=== PATIENT | female | born 1985 | race Caucasian/White ===

== ENCOUNTER 2017-04-17 16:14 | Emergency (ER) | payer OTHER, MEDICAID ==
[~2017-04-17] VITALS: Ht 144.8 cm; Wt 68.0 kg
[~2017-04-17 16:14] MED LIST: ABIL10 PO; ALBUTEROL; CALC200T29 PO; FERR-63 PO; PREN-127 PO
[2017-04-17] MEDS ORDERED: ACETAMINOPHEN 325MG TABLET PO ONE (19:00)
[2017-04-17 19:04] VITALS: BP 105/69
== END 2017-04-17 19:09 | disposition home or self-care (01) ==
LOC: ER 17:28
DX: K08.89 Other specified disorders of teeth and supporting structures (principal); J45.909 Unspecified asthma, uncomplicated; Z91.040 Latex allergy status
CPT/HCPCS: 99283

== ENCOUNTER 2017-07-15 20:19 | Observation (INO) | payer OTHER, MEDICAID ==
[~2017-07-15] VITALS: Ht 144.8 cm; Wt 72.6 kg
[2017-07-15] MEDS ORDERED: FOLI-43 PO (23:51)
== END 2017-07-16 07:00 | disposition home or self-care (01) ==
LOC: L&D 20:19
PROVIDERS: ADMIT Obstetrics & Gynecology; ATTEND Obstetrics & Gynecology
DX: O62.9 Abnormality of forces of labor, unspecified (principal); Z3A.37 37 weeks gestation of pregnancy; Z79.899 Other long term (current) drug therapy
CPT/HCPCS: 82962; 99281; G0378

== ENCOUNTER 2017-07-22 20:41 | Observation (INO) | payer OTHER, MEDICAID ==
[~2017-07-22] VITALS: Ht 144.8 cm; Wt 68.9 kg
[~2017-07-22 20:41] MED LIST changes: +FOLI-43 PO
== END 2017-07-22 21:52 | disposition home or self-care (01) ==
LOC: L&D 20:41
PROVIDERS: ADMIT Specialist; ATTEND Specialist
DX: O62.9 Abnormality of forces of labor, unspecified (principal); Z3A.38 38 weeks gestation of pregnancy
CPT/HCPCS: 99281; G0378

== ENCOUNTER 2017-07-24 20:21 | Observation (INO) | payer OTHER ==
[~2017-07-24] VITALS: Ht 144.8 cm; Wt 68.0 kg
[~2017-07-24 20:21] MED LIST changes: -ABIL10 PO; -ALBUTEROL; -CALC200T29 PO; -FERR-63 PO; -FOLI-43 PO
[2017-07-24] MEDS ORDERED: FOLI-43 PO (22:29)
== END 2017-07-24 22:25 | disposition home or self-care (01) ==
LOC: L&D 20:21
PROVIDERS: ADMIT Obstetrics & Gynecology; ATTEND Obstetrics & Gynecology
DX: O42.92 Full-term premature rupture of membranes, unspecified as to length of time between rupture and onset of labor (principal); O62.9 Abnormality of forces of labor, unspecified; O24.410 Gestational diabetes mellitus in pregnancy, diet controlled; Z3A.38 38 weeks gestation of pregnancy
CPT/HCPCS: 82962; 99281; G0378

== ENCOUNTER 2017-07-29 00:02 | Emergency (ER) | payer OTHER ==
[~2017-07-29] VITALS: Ht 144.8 cm; Wt 74.0 kg
[~2017-07-29 00:02] MED LIST changes: +FOLI-43 PO
[2017-07-29 01:41] VITALS: BP 133/71
== END 2017-07-29 05:51 | disposition left against medical advice (07) ==
LOC: ER 00:02
DX: F32.9 Major depressive disorder, single episode, unspecified (principal); R56.9 Unspecified convulsions; Z53.21 Procedure and treatment not carried out due to patient leaving prior to being seen by health care provider

== ENCOUNTER 2017-08-04 12:03 | Observation (INO) | payer OTHER, MEDICAID ==
[~2017-08-04] VITALS: Ht 9 cm; Wt 72.6 kg
== END 2017-08-04 13:20 | disposition home or self-care (01) ==
LOC: L&D 12:03
PROVIDERS: ADMIT Specialist; ATTEND Specialist
DX: O26.893 Other specified pregnancy related conditions, third trimester (principal); R10.9 Unspecified abdominal pain; O48.1 Prolonged pregnancy; Z3A.40 40 weeks gestation of pregnancy
CPT/HCPCS: 99281; G0378

== ENCOUNTER 2017-08-05 11:11 | Inpatient (IN) | payer OTHER, MEDICAID ==
[~2017-08-05] VITALS: Ht 144.8 cm; Wt 72.6 kg
[2017-08-05] MEDS ORDERED: METHYLERGONOVINE MALEATE 0.2 MG/ML IM PRN (12:00)
[2017-08-05] MEDS ORDERED: CARBOPROST TROMETHAMINE 250 MCG/ML AMPUL IM PRN (12:00)
[2017-08-05] MEDS ORDERED: BUTORPHANOL TARTRATE 2 MG/ML VIAL IV PRN (12:00)
[2017-08-05] MEDS ORDERED: LIDOCAINE HCL 1% 20ML VIAL (Pyxis) INJ INFIL SCH (12:00)
[2017-08-05] MEDS ORDERED: NALOXONE HCL 0.4 MG/ML 1ML VIAL IM PRN (12:00)
[2017-08-05] MEDS ORDERED: PENICILLIN G POTASSIUM 5 MMU in DEXT 5% WATER 100 ML IV NR (12:30)
[2017-08-05] MEDS: LACTATED RINGERS 1,000 ML IV SCH ×2 (13:19→15:34)
[2017-08-05 14:26] LABS: BASOPHILS % 0.7 % (0.0-2.0); HEMATOCRIT. 29.7 % (36.0-48.0); HEMOGLOBIN. 9.5 g/dL (12.0-16.0); LYMPHOCYTES % 12.9 % (20.0-50.0); MEAN CORPUSCULAR HEMOGLOBIN 25.4 pg (28.0-32.0); MEAN CORPUSCULAR VOLUME 79.6 fL (81.0-99.0); MEAN PLATELET VOLUME 9.6 fl (7.4-10.4); MONOCYTES % 7.6 % (2.0-8.0); NEUTROPHILS % 75.8 % (40.0-76.0); PLATELET 235 x1000/uL (130-400); RED BLOOD CELL COUNT 3.73 mill/uL (4.2-5.4); RED CELL DISTRIBUTION WIDTH 13.9 % (11.6-14.6)
[2017-08-05 14:33] LABS: CLARITY URINE CLEAR (CLEAR); COLOR URINE YELLOW (YELLOW); KETONES URINE NEGATIVE (NEGATIVE); LEUKOCYTE ESTERASE URINE NEGATIVE (NEGATIVE); NITRITE URINE NEGATIVE (NEGATIVE); OCCULT BLOOD URINE NEGATIVE (NEGATIVE); PH URINE >=9.0 (4.5-8.0); PROTEIN URINE NEGATIVE (NEGATIVE); SPECIFIC GRAVITY URINE 1.013 (1.005-1.030)
[2017-08-05 14:34] LABS: PARTIAL THROMBOPLASTIN TIME 25.7 sec (23.4-31.0); PROTHROMBIN TIME 10.1 sec (9.4-11.6)
[2017-08-05] MEDS ORDERED: FENTANYL CITRATE/PF 50MCG/ML 2ML VIAL ONE ×2 (14:54→15:18)
[2017-08-05] MEDS ORDERED: CITRIC ACID/SODIUM CITRATE SOLN 30ML UDC PO NR (15:00)
[2017-08-05] MEDS ORDERED: BUPIVACAINE HCL/PF 0.25% (2.5MG/ML) 10ML ONE (15:01)
[2017-08-05] MEDS ORDERED: BUPIVACAINE HCL/NS/PF EPIDURAL 100 ML EP ONE (15:18)
[2017-08-05 15:19] LABS: *AMPHETAMINES SCREEN URINE NEGATIVE (NEGATIVE); *BARBITURATES SCREEN URINE NEGATIVE (NEGATIVE); *BENZODIAZEPINES SCREEN URINE NEGATIVE (NEGATIVE); *COCAINE SCREEN URINE NEGATIVE (NEGATIVE); CANNABINOID URINE SCREEN NEGATIVE (NEGATIVE); METHADONE URINE SCREEN NEGATIVE (NEGATIVE); OPIATES URINE SCREEN NEGATIVE (NEGATIVE); PHENCYCLIDINE URINE SCREEN NEGATIVE (NEGATIVE)
[2017-08-05] MEDS ORDERED: DIPHENHYDRAMINE 50MG/ML VIAL IM PRN (15:30)
[2017-08-05] MEDS ORDERED: NALOXONE HCL 0.4 MG/ML 1ML VIAL IV PRN (15:30)
[2017-08-05] MEDS ORDERED: BUPIVACAINE HCL/NS/PF EPIDURAL 100 ML EP SCH (15:30)
[2017-08-05] MEDS ORDERED: ONDANSETRON HCL 4MG/2ML VIAL IV PRN (15:30)
[2017-08-05 15:55] LABS: HEPATITIS B SURFACE ANTIGEN NEGATIVE; RUBELLA IGG 48.8 IU/mL (4.99-10)
[2017-08-05] MEDS: OXYTOCIN 20 UNITS in LACTATED RINGERS 1,000 ML IV SCH ×2 (18:11→19:52)
[2017-08-05] MEDS ORDERED: PENICILLIN G POTASSIUM 2.5 MMU in DEXTROSE 5% WATER 50 ML IV SCH ×2 (18:30→21:00)
[2017-08-05] MEDS ORDERED: GLYCERIN/WITCH HAZEL LEAF MEDICATED PAD TOP PRN (19:00)
[2017-08-05] MEDS ORDERED: BISACODYL 10MG SUPP PR PRN (19:00)
[2017-08-05] MEDS ORDERED: RHO(D) IMMUNE GLOBULIN 300 MCG/SYR IM PRN (19:00)
[2017-08-05] MEDS ORDERED: BENZOCAINE/LANOLIN/ALOE VERA SPRAY TOP PRN (19:00)
[2017-08-05] MEDS ORDERED: LANOLIN OINT 0.25 GM TUBE TOP PRN (19:00)
[2017-08-05] MEDS ORDERED: DIPHENHYDRAMINE 25MG CAPSULE PO PRN (19:00)
[2017-08-05] MEDS ORDERED: HEMORRHOIDAL SUPP PR PRN (19:00)
[2017-08-05] MEDS ORDERED: TETANUS, DIPHTHERIA, PERTUSSIS VAC/PF 0.5ML (>7YR OLD) IM ONE (19:00)
[2017-08-05] MEDS: ACETAMINOPHEN WITH CODEINE 300/30MG TABLET PO PRN ×2 (19:58→23:22)
[2017-08-05] MEDS ORDERED: INFLUENZA VIRUS VACCINE 0.5ML SYR IM ONE (20:00)
[2017-08-05 20:15] VITALS: BP 129/65
[2017-08-05] MEDS: DOCUSATE SODIUM 100MG CAPSULE PO SCH (21:00)
[2017-08-05 21:15] VITALS: BP 128/82
[2017-08-06 00:05] VITALS: BP 121/79
[2017-08-06 07:00] LABS: BASOPHILS % 0.6 % (0.0-2.0); EOSINOPHILS % 3.2 % (0.0-5.0); HEMATOCRIT. 24.9 % (36.0-48.0); HEMOGLOBIN. 8.1 g/dL (12.0-16.0); LYMPHOCYTES % 17.2 % (20.0-50.0); MEAN CORPUSCULAR VOLUME 79.8 fL (81.0-99.0); MEAN PLATELET VOLUME 9.2 fl (7.4-10.4); MONOCYTES % 8.8 % (2.0-8.0); NEUTROPHILS % 70.2 % (40.0-76.0); PLATELET 192 x1000/uL (130-400); RED BLOOD CELL COUNT 3.12 mill/uL (4.2-5.4)
[2017-08-06 08:00] VITALS: BP 132/78
[2017-08-06] MEDS: PRENATAL VIT/FE FUMARATE/FA TABLET PO SCH (08:51)
[2017-08-06] MEDS: IBUPROFEN 400MG TABLET PO PRN ×2 (08:53→15:30)
[2017-08-06] MEDS: ACETAMINOPHEN WITH CODEINE 300/30MG TABLET PO PRN ×3 (08:54→20:55)
[2017-08-06] MEDS: FERROUS SULFATE 325MG TABLET PO SCH (15:27)
[2017-08-06] MEDS: DOCUSATE SODIUM 100MG CAPSULE PO SCH (20:50)
[2017-08-06 20:55] VITALS: BP 125/75
[2017-08-07] MEDS: ACETAMINOPHEN WITH CODEINE 300/30MG TABLET PO PRN (01:30)
[2017-08-07 06:30] VITALS: BP 106/74
[2017-08-07] MEDS: IBUPROFEN 400MG TABLET PO PRN (06:55)
[2017-08-07 07:31] VITALS: BP 117/67
[2017-08-07] MEDS: PRENATAL VIT/FE FUMARATE/FA TABLET PO SCH (09:16)
[2017-08-07] MEDS: FERROUS SULFATE 325MG TABLET PO SCH (09:16)
== END 2017-08-07 10:45 | disposition home or self-care (01) | DRG 775 ==
LOC: OBSVTOIN 11:11 → L&D 11:11 → 7EST PP/OB 20:07
PROVIDERS: ADMIT Specialist; ATTEND Specialist
PROC: 0KQM0ZZ Repair Perineum Muscle, Open Approach (ICD-10-PCS; 2017-08-05)
PROC: 3E0R3BZ Introduction of Anesthetic Agent into Spinal Canal, Percutaneous Approach (ICD-10-PCS; 2017-08-05)
PROC: 00HU33Z Insertion of Infusion Device into Spinal Canal, Percutaneous Approach (ICD-10-PCS; 2017-08-05)
PROC: 10E0XZZ Delivery of Products of Conception, External Approach (ICD-10-PCS; principal; 2017-08-05 17:43)
DX: O24.429 Gestational diabetes mellitus in childbirth, unspecified control (principal); D64.9 Anemia, unspecified; J45.909 Unspecified asthma, uncomplicated; O70.1 Second degree perineal laceration during delivery; O99.52 Diseases of the respiratory system complicating childbirth; O99.02 Anemia complicating childbirth; Z3A.40 40 weeks gestation of pregnancy; Z37.0 Single live birth
CPT/HCPCS: 36415; 76805; 80305; 81003; 82947; 85025; 85610; 85730; 86592; 86703; 86762; 86850; 86900; 87340; 90686; 90715; J0595; J2540; J3010; J3490; J7060; J7120; A4315

== ENCOUNTER 2017-08-31 19:40 | Emergency (ER) | payer MEDICARE, MEDICAID ==
[~2017-08-31] VITALS: Ht 144.8 cm; Wt 63.0 kg
[2017-08-31] MEDS ORDERED: PHENYTOIN SODIUM 1,000 MG in SODIUM CHLORIDE 0.9% 100 ML IV ONE (22:45)
[2017-08-31 23:23] LABS: BASOPHILS % 1.3 % (0.0-2.0); HEMOGLOBIN. 10.6 g/dL (12.0-16.0); LYMPHOCYTES % 30.3 % (20.0-50.0); MEAN CORPUSCULAR HEMOGLOBIN 25.4 pg (28.0-32.0); MEAN CORPUSCULAR VOLUME 79.3 fL (81.0-99.0); MEAN PLATELET VOLUME 8.7 fl (7.4-10.4); MONOCYTES % 7.9 % (2.0-8.0); NEUTROPHILS % 57.5 % (40.0-76.0); PLATELET 301 x1000/uL (130-400); RED BLOOD CELL COUNT 4.16 mill/uL (4.2-5.4); RED CELL DISTRIBUTION WIDTH 15.7 % (11.6-14.6)
[2017-08-31 23:33] LABS: CHLORIDE 110 mEq/L (98-107); ETHANOL BLOOD < 10 mg/dL
[2017-09-01] MEDS ORDERED: POTASSIUM CHLORIDE 20MEQ TABLET SR PO ONE
[2017-09-01 00:01] LABS: VALPROIC ACID < 3.0 ug/mL (50-100)
[2017-09-01 03:33] VITALS: BP 119/76
== END 2017-09-01 03:34 | disposition home or self-care (01) ==
LOC: ER 19:48
DX: R56.9 Unspecified convulsions (principal); E87.6 Hypokalemia; M89.9 Disorder of bone, unspecified; E11.9 Type 2 diabetes mellitus without complications; J45.909 Unspecified asthma, uncomplicated; Z98.890 Other specified postprocedural states
CPT/HCPCS: 36415; 70450; 71045; 80053; 80165; 80185; 84443; 85025; 96365; 99285; G0482; J1165; 96360; J7050

== ENCOUNTER 2017-10-03 00:06 | Emergency (ER) | payer MEDICARE, MEDICAID ==
[~2017-10-03] VITALS: Ht 165.1 cm; Wt 68.0 kg
[2017-10-03] MEDS ORDERED: SODIUM CHLORIDE 0.9% 1,000 ML IV ONE (00:58)
[2017-10-03] MEDS ORDERED: LEVETIRACETAM 1000MG/100ML 100 ML IV ONE (01:00)
[2017-10-03 01:36] LABS: BASOPHILS % 1.1 % (0.0-2.0); EOSINOPHILS % 3.9 % (0.0-5.0); HEMATOCRIT. 34.9 % (36.0-48.0); HEMOGLOBIN. 11.5 g/dL (12.0-16.0); LYMPHOCYTES % 37.3 % (20.0-50.0); MEAN CORPUSCULAR HEMOGLOBIN 26.1 pg (28.0-32.0); MEAN CORPUSCULAR VOLUME 79.5 fL (81.0-99.0); MEAN PLATELET VOLUME 8.8 fl (7.4-10.4); MONOCYTES % 11.2 % (2.0-8.0); NEUTROPHILS % 46.5 % (40.0-76.0); PLATELET 284 x1000/uL (130-400); RED CELL DISTRIBUTION WIDTH 16.2 % (11.6-14.6)
[2017-10-03 01:40] LABS: CHLORIDE 108 mEq/L (98-107)
[2017-10-03 01:41] LABS: PROTHROMBIN TIME 10.7 sec (9.4-11.6)
[2017-10-03 01:45] LABS: AMMONIA 36 uMol/L (<32); ETHANOL BLOOD < 10 mg/dL
[2017-10-03 01:49] LABS: CREATINE KINASE 102 IU/L (26-192)
[2017-10-03] MEDS ORDERED: PHENYTOIN SODIUM 1,000 MG in SODIUM CHLORIDE 0.9% 100 ML IV ONE (02:00)
[2017-10-03 02:07] LABS: CARBAMAZEPINE < 0.5 ug/mL (4-12); PHENOBARBITAL < 2.1 ug/mL (15.0-40.0)
[2017-10-03 02:16] LABS: CLARITY URINE CLOUDY (CLEAR); COLOR URINE YELLOW (YELLOW); KETONES URINE NEGATIVE (NEGATIVE); LEUKOCYTE ESTERASE URINE 3+ (NEGATIVE); NITRITE URINE NEGATIVE (NEGATIVE); OCCULT BLOOD URINE TRACE (NEGATIVE); PROTEIN URINE TRACE (NEGATIVE); SPECIFIC GRAVITY URINE 1.032 (1.005-1.030); UROBILINOGEN URINE 0.2 E.U./dL (0.2-1.0)
[2017-10-03 02:32] LABS: *AMPHETAMINES SCREEN URINE NEGATIVE (NEGATIVE); *BARBITURATES SCREEN URINE NEGATIVE (NEGATIVE); *BENZODIAZEPINES SCREEN URINE NEGATIVE (NEGATIVE); *COCAINE SCREEN URINE NEGATIVE (NEGATIVE); CANNABINOID URINE SCREEN NEGATIVE (NEGATIVE)
[2017-10-03 02:33] LABS: METHADONE URINE SCREEN NEGATIVE (NEGATIVE); OPIATES URINE SCREEN NEGATIVE (NEGATIVE); PHENCYCLIDINE URINE SCREEN NEGATIVE (NEGATIVE)
[2017-10-03] MEDS ORDERED: ACETAMINOPHEN 325MG TABLET PO ONE (03:45)
[2017-10-03] MEDS ORDERED: CEFTRIAXONE 1 G PREMIX 50 ML IV SCH (04:17)
[2017-10-03] MEDS ORDERED: LACTULOSE 20G/30ML UDC PO SCH (04:17)
[2017-10-03 06:16] VITALS: BP 143/67
== END 2017-10-03 06:20 | disposition home or self-care (01) ==
LOC: ER 00:06
DX: G40.409 Other generalized epilepsy and epileptic syndromes, not intractable, without status epilepticus (principal); N39.0 Urinary tract infection, site not specified; R00.1 Bradycardia, unspecified; J45.909 Unspecified asthma, uncomplicated; E11.9 Type 2 diabetes mellitus without complications; Z98.890 Other specified postprocedural states; Z91.040 Latex allergy status
CPT/HCPCS: 36415; 70450; 71045; 80053; 80156; 80165; 80184; 80185; 80305; 81003; 81025; 82140; 82550; 82962; 83605; 83690; 84443; 84484; 85025; 85610; 87086; 93005; 96365; 96366; 96367; 99285; G0482; J0696; J1165; J1953; J7030; J7050

== ENCOUNTER 2017-10-18 21:04 | Emergency (ER) | payer MEDICARE, MEDICAID ==
[~2017-10-18] VITALS: Ht 144.8 cm; Wt 68.0 kg
[2017-10-19 02:09] LABS: CHLORIDE 106 mEq/L (98-107)
[2017-10-19 02:10] LABS: BASOPHILS % 0.4 % (0.0-2.0); EOSINOPHILS % 1.1 % (0.0-5.0); HEMATOCRIT. 32.5 % (36.0-48.0); HEMOGLOBIN. 10.6 g/dL (12.0-16.0); MEAN CORPUSCULAR HEMOGLOBIN 25.7 pg (28.0-32.0); MEAN CORPUSCULAR VOLUME 78.6 fL (81.0-99.0); MEAN PLATELET VOLUME 8.9 fl (7.4-10.4); MONOCYTES % 8.8 % (2.0-8.0); NEUTROPHILS % 71.7 % (40.0-76.0); PLATELET 286 x1000/uL (130-400); RED BLOOD CELL COUNT 4.14 mill/uL (4.2-5.4); RED CELL DISTRIBUTION WIDTH 15.9 % (11.6-14.6)
[2017-10-19 02:12] LABS: HCG SCREEN NEGATIVE
[2017-10-19] MEDS ORDERED: ACETAMINOPHEN 325MG TABLET PO ONE (05:30)
[2017-10-19] MEDS ORDERED: IOHEXOL-300 100 ML BOTTLE ONE (06:25)
[2017-10-19] MEDS ORDERED: PHENYTOIN SODIUM EXTENDED 100MG CAPSULE PO ONE (06:45)
[2017-10-19 10:50] LABS: CLARITY URINE CLEAR (CLEAR); COLOR URINE YELLOW (YELLOW); KETONES URINE NEGATIVE (NEGATIVE); LEUKOCYTE ESTERASE URINE NEGATIVE (NEGATIVE); NITRITE URINE NEGATIVE (NEGATIVE); OCCULT BLOOD URINE NEGATIVE (NEGATIVE); PROTEIN URINE NEGATIVE (NEGATIVE); SPECIFIC GRAVITY URINE 1.087 (1.005-1.030); UROBILINOGEN URINE 0.2 E.U./dL (0.2-1.0)
[2017-10-19 11:30] LABS: *AMPHETAMINES SCREEN URINE NEGATIVE (NEGATIVE)
[2017-10-19 11:31] LABS: *BARBITURATES SCREEN URINE NEGATIVE (NEGATIVE); *BENZODIAZEPINES SCREEN URINE NEGATIVE (NEGATIVE); *COCAINE SCREEN URINE NEGATIVE (NEGATIVE); CANNABINOID URINE SCREEN NEGATIVE (NEGATIVE); METHADONE URINE SCREEN NEGATIVE (NEGATIVE); OPIATES URINE SCREEN NEGATIVE (NEGATIVE); PHENCYCLIDINE URINE SCREEN NEGATIVE (NEGATIVE)
[2017-10-19 11:35] LABS: ETHANOL BLOOD < 10 mg/dL
[2017-10-19] MEDS ORDERED: POTASSIUM CHLORIDE 20MEQ TABLET SR PO ONE (12:30)
[2017-10-19] MEDS ORDERED: LORAZEPAM 0.5MG TABLET PO ONE (15:45)
[2017-10-19 16:54] VITALS: BP 113/78
== END 2017-10-19 17:11 ==
LOC: ER 21:38
DX: G40.409 Other generalized epilepsy and epileptic syndromes, not intractable, without status epilepticus (principal); K04.7 Periapical abscess without sinus; F32.9 Major depressive disorder, single episode, unspecified; E11.9 Type 2 diabetes mellitus without complications; J45.909 Unspecified asthma, uncomplicated; Z91.14 Patient's other noncompliance with medication regimen; Z91.81 History of falling; Z98.890 Other specified postprocedural states
CPT/HCPCS: 36415; 70450; 70486; 70487; 80053; 80305; 80307; 80329; 81003; 82962; 84703; 85025; 99285; G0482; Q9967

== ENCOUNTER 2017-10-23 19:46 | Emergency (ER) | payer OTHER, MEDICAID ==
[~2017-10-23] VITALS: Ht 144.8 cm; Wt 63.6 kg
[2017-10-23] MEDS ORDERED: MORPHINE SULFATE 4 MG/ML CPJ (NOT FOR IM USE) IV ONE (23:30)
[2017-10-23] MEDS ORDERED: ONDANSETRON HCL 4MG/2ML VIAL IV ONE (23:30)
[2017-10-23] MEDS ORDERED: SODIUM CHLORIDE 0.9% 1000ML BAG (SEPSIS BOLUS) IV ONE (23:30)
[2017-10-23] MEDS ORDERED: ACETAMINOPHEN 325MG TABLET PO ONE (23:45)
[2017-10-24] MEDS ORDERED: PIPERACILLIN/TAZ 3.375G PREMIX 50 ML IV ONE (00:30)
[2017-10-24] MEDS ORDERED: VANCOMYCIN 1 G PREMIX 200 ML IV ONE (00:30)
[2017-10-24] MEDS ORDERED: TETANUS, DIPHTHERIA, PERTUSSIS VAC/PF 0.5ML (>7YR OLD) IM ONE (00:30)
[2017-10-24] MEDS ORDERED: SODIUM CHLORIDE 0.9% 1000ML BAG (SEPSIS BOLUS) IV ONE (00:30)
[2017-10-24 00:36] LABS: HEMATOCRIT. 33.4 % (36.0-48.0); HEMOGLOBIN. 10.8 g/dL (12.0-16.0); MEAN CORPUSCULAR HEMOGLOBIN 25.3 pg (28.0-32.0); MEAN PLATELET VOLUME 8.5 fl (7.4-10.4); PLATELET 360 x1000/uL (130-400); RED BLOOD CELL COUNT 4.28 mill/uL (4.2-5.4); RED CELL DISTRIBUTION WIDTH 15.8 % (11.6-14.6)
[2017-10-24 00:44] LABS: INR 1.2
[2017-10-24 00:45] LABS: CHLORIDE 96 mEq/L (98-107)
[2017-10-24 00:58] LABS: PLATELET ESTIMATE NORMAL
[2017-10-24 04:51] LABS: CLARITY URINE CLEAR (CLEAR); COLOR URINE YELLOW (YELLOW); KETONES URINE 3+ (NEGATIVE); LEUKOCYTE ESTERASE URINE NEGATIVE (NEGATIVE); NITRITE URINE NEGATIVE (NEGATIVE); OCCULT BLOOD URINE NEGATIVE (NEGATIVE); PROTEIN URINE 1+ (NEGATIVE); SPECIFIC GRAVITY URINE 1.014 (1.005-1.030)
[2017-10-24 05:03] LABS: *AMPHETAMINES SCREEN URINE NEGATIVE (NEGATIVE); *BARBITURATES SCREEN URINE NEGATIVE (NEGATIVE); *BENZODIAZEPINES SCREEN URINE NEGATIVE (NEGATIVE); *COCAINE SCREEN URINE NEGATIVE (NEGATIVE); METHADONE URINE SCREEN NEGATIVE (NEGATIVE)
[2017-10-24 05:04] LABS: CANNABINOID URINE SCREEN NEGATIVE (NEGATIVE); PHENCYCLIDINE URINE SCREEN NEGATIVE (NEGATIVE)
[2017-10-24 05:06] LABS: OPIATES URINE SCREEN PRESUMTIVE POSITIVE (NEGATIVE)
[2017-10-24] MEDS ORDERED: KETOROLAC 30MG/ML VIAL IV ONE (06:15)
[2017-10-24] MEDS ORDERED: DEXAMETHASONE 10 MG/ML VIAL IV ONE (06:15)
[2017-10-24] MEDS ORDERED: ACETAMINOPHEN 325MG TABLET PO ONE (07:15)
[2017-10-24] MEDS ORDERED: ACETAMINOPHEN 325MG TABLET PO NR (07:45)
[2017-10-24] MEDS ORDERED: MORPHINE SULFATE 4 MG/ML CPJ (NOT FOR IM USE) IV ONE (08:15)
[2017-10-24] MEDS ORDERED: ONDANSETRON HCL 4MG/2ML VIAL IV ONE (08:15)
[2017-10-24 08:35] VITALS: BP 120/74
== END 2017-10-24 09:38 | disposition short-term general hospital (02) ==
LOC: ER 21:19
DX: K04.7 Periapical abscess without sinus (principal); E11.9 Type 2 diabetes mellitus without complications; K12.2 Cellulitis and abscess of mouth; L02.11 Cutaneous abscess of neck; J45.909 Unspecified asthma, uncomplicated; Z23 Encounter for immunization
CPT/HCPCS: 36415; 70490; 71045; 80053; 80305; 81003; 83605; 85025; 85610; 87040; 87086; 93005; 96365; 96366; 96368; 96375; 96376; 99285; G0482; J1100; J1885; J2270; J2405; J2543; J3370; J7030

== ENCOUNTER 2017-12-06 22:27 | Emergency (ER) | payer OTHER, MEDICAID ==
[~2017-12-06] VITALS: Ht 144.8 cm; Wt 69.0 kg
[2017-12-07] MEDS ORDERED: METOCLOPRAMIDE HCL 10MG/2ML VIAL IV ONE (03:45)
[2017-12-07] MEDS ORDERED: SODIUM CHLORIDE 0.9% 1,000 ML IV ONE (03:45)
[2017-12-07] MEDS ORDERED: KETOROLAC 30MG/ML VIAL IV ONE (03:45)
[2017-12-07] MEDS ORDERED: PHENYTOIN SODIUM EXTENDED 100MG CAPSULE PO ONE (04:00)
[2017-12-07 05:05] VITALS: BP 108/67
== END 2017-12-07 06:53 | disposition home or self-care (01) ==
LOC: ER 22:27
DX: R51 Headache (principal); J45.909 Unspecified asthma, uncomplicated; E11.9 Type 2 diabetes mellitus without complications; F17.200 Nicotine dependence, unspecified, uncomplicated; R56.9 Unspecified convulsions; Z91.041 Radiographic dye allergy status; Z91.040 Latex allergy status; Z98.890 Other specified postprocedural states
CPT/HCPCS: 81025; 96374; 96375; 99284; J1885; J2765; J7030

== ENCOUNTER 2018-04-02 00:04 | Emergency (ER) | payer OTHER, MEDICAID ==
[~2018-04-02] VITALS: Ht 152.4 cm; Wt 68.1 kg
[~2018-04-02 00:04] MED LIST changes: +ASPI-1160 PO; -FOLI-43 PO; +KEPP500 PO; +PHEN100C4 PO; -PREN-127 PO
[2018-04-02] MEDS ORDERED: MORPHINE SULFATE 4 MG/ML CPJ (NOT FOR IM USE) IV STA (01:16)
[2018-04-02] MEDS ORDERED: SODIUM CHLORIDE 0.9% 1,000 ML IV ONE (01:16)
[2018-04-02] MEDS ORDERED: ONDANSETRON HCL 4MG/2ML INJ IV STA (01:16)
[2018-04-02 01:51] LABS: BASOPHILS % 0.9 % (0.0-2.0); EOSINOPHILS % 3.8 % (0.0-5.0); HEMATOCRIT. 33.3 % (36.0-48.0); HEMOGLOBIN. 10.9 g/dL (12.0-16.0); LYMPHOCYTES % 35.6 % (20.0-50.0); MEAN CORPUSCULAR HEMOGLOBIN 26.9 pg (28.0-32.0); MEAN CORPUSCULAR VOLUME 82.5 fL (81.0-99.0); MEAN PLATELET VOLUME 8.8 fl (7.4-10.4); MONOCYTES % 10.4 % (2.0-8.0); NEUTROPHILS % 49.3 % (40.0-76.0); PLATELET 286 x1000/uL (130-400); RED BLOOD CELL COUNT 4.04 mill/uL (4.2-5.4); RED CELL DISTRIBUTION WIDTH 14.5 % (11.6-14.6)
[2018-04-02 01:59] LABS: CHLORIDE 107 mEq/L (98-107)
[2018-04-02 06:28] VITALS: BP 115/60
== END 2018-04-02 06:14 | disposition home or self-care (01) ==
LOC: ER 00:04
DX: R07.9 Chest pain, unspecified (principal); N92.0 Excessive and frequent menstruation with regular cycle; J45.909 Unspecified asthma, uncomplicated; E11.9 Type 2 diabetes mellitus without complications; R56.9 Unspecified convulsions; F17.200 Nicotine dependence, unspecified, uncomplicated; Z88.8 Allergy status to other drugs, medicaments and biological substances; Z79.82 Long term (current) use of aspirin; Z91.040 Latex allergy status
CPT/HCPCS: 36415; 71045; 76830; 76856; 80053; 81025; 84484; 85025; 86850; 86900; 86901; 93005; 99285; J7030

== ENCOUNTER 2018-04-30 17:55 | Emergency (ER) | payer MEDICARE, MEDICAID ==
[~2018-04-30] VITALS: Ht 152.4 cm; Wt 78.0 kg
[2018-04-30 22:30] VITALS: BP 110/75
[2018-04-30 23:56] LABS: CLARITY URINE TURBID (CLEAR); COLOR URINE DARK YELLOW (YELLOW); KETONES URINE TRACE (NEGATIVE); LEUKOCYTE ESTERASE URINE 2+ (NEGATIVE); NITRITE URINE POSITIVE (NEGATIVE); OCCULT BLOOD URINE 3+ (NEGATIVE); PROTEIN URINE 2+ (NEGATIVE); SPECIFIC GRAVITY URINE 1.028 (1.005-1.030)
[2018-05-01 00:24] LABS: *AMPHETAMINES SCREEN URINE NEGATIVE (NEGATIVE); *BARBITURATES SCREEN URINE NEGATIVE (NEGATIVE); *BENZODIAZEPINES SCREEN URINE NEGATIVE (NEGATIVE); *COCAINE SCREEN URINE NEGATIVE (NEGATIVE); METHADONE URINE SCREEN NEGATIVE (NEGATIVE); OPIATES URINE SCREEN NEGATIVE (NEGATIVE)
[2018-05-01 00:25] LABS: CANNABINOID URINE SCREEN NEGATIVE (NEGATIVE); PHENCYCLIDINE URINE SCREEN NEGATIVE (NEGATIVE)
== END 2018-05-01 00:50 | disposition left against medical advice (07) ==
LOC: ER 17:55
DX: M25.562 Pain in left knee (principal); M25.561 Pain in right knee; J45.909 Unspecified asthma, uncomplicated; E11.9 Type 2 diabetes mellitus without complications; Z98.890 Other specified postprocedural states; Z79.82 Long term (current) use of aspirin; Z91.040 Latex allergy status; Z91.041 Radiographic dye allergy status
CPT/HCPCS: 80305; 81025; 87077; 87186; 99283

== ENCOUNTER 2018-11-23 12:50 | Emergency (ER) | payer BC, MEDICAID ==
[~2018-11-23] VITALS: Ht 154.9 cm; Wt 77.0 kg
[2018-11-23] MEDS ORDERED: TRAZ-213 PO (13:02)
[2018-11-23] MEDS ORDERED: METF-414 PO (13:02)
[2018-11-23] MEDS ORDERED: IBUPROFEN 600MG TABLET PO ONE (13:30)
[2018-11-23] MEDS ORDERED: TRAMADOL 50MG TABLET PO ONE (13:30)
[2018-11-23 14:55] VITALS: BP 116/75
== END 2018-11-23 14:58 | disposition home or self-care (01) ==
LOC: ER 12:50
DX: R07.89 Other chest pain (principal); R06.02 Shortness of breath; E66.9 Obesity, unspecified; I25.2 Old myocardial infarction; F20.9 Schizophrenia, unspecified; R56.9 Unspecified convulsions; Z98.890 Other specified postprocedural states; Z68.32 Body mass index [BMI] 32.0-32.9, adult; Z91.041 Radiographic dye allergy status; Z91.040 Latex allergy status; Z79.82 Long term (current) use of aspirin; Z82.49 Family history of ischemic heart disease and other diseases of the circulatory system; Z79.899 Other long term (current) drug therapy
CPT/HCPCS: 99283

== ENCOUNTER 2018-12-20 02:06 | Emergency (ER) | payer BC, MEDICAID ==
[~2018-12-20] VITALS: Ht 152.4 cm; Wt 56.0 kg
[~2018-12-20 02:06] MED LIST changes: +METF-414 PO; +TRAZ-213 PO
[2018-12-20] MEDS ORDERED: MORPHINE SULFATE 4 MG/ML CPJ (NOT FOR IM USE) IV STA (02:45)
[2018-12-20] MEDS ORDERED: ONDANSETRON HCL 4MG/2ML INJ IV STA (02:45)
[2018-12-20] MEDS ORDERED: PHENYTOIN SODIUM EXTENDED 100MG CAPSULE PO ONE (03:00)
[2018-12-20 03:01] LABS: BASOPHILS % 0.8 % (0.0-2.0); HEMATOCRIT. 35.2 % (36.0-48.0); HEMOGLOBIN. 11.5 g/dL (12.0-16.0); LYMPHOCYTES % 27.4 % (20.0-50.0); MEAN CORPUSCULAR HEMOGLOBIN 27.5 pg (28.0-32.0); MEAN CORPUSCULAR VOLUME 84.4 fL (81.0-99.0); MONOCYTES % 8.3 % (2.0-8.0); NEUTROPHILS % 61.5 % (40.0-76.0); PLATELET 252 x1000/uL (130-400); RED BLOOD CELL COUNT 4.17 mill/uL (4.2-5.4)
[2018-12-20 03:04] LABS: CHLORIDE 110 mEq/L (98-107)
[2018-12-20 03:08] LABS: ETHANOL BLOOD < 10 mg/dL
[2018-12-20 03:48] LABS: CLARITY URINE CLOUDY (CLEAR); COLOR URINE YELLOW (YELLOW); KETONES URINE NEGATIVE (NEGATIVE); LEUKOCYTE ESTERASE URINE 3+ (NEGATIVE); NITRITE URINE NEGATIVE (NEGATIVE); OCCULT BLOOD URINE TRACE (NEGATIVE); PH URINE 6.5 (4.5-8.0); PROTEIN URINE NEGATIVE (NEGATIVE); SPECIFIC GRAVITY URINE 1.012 (1.005-1.030); UROBILINOGEN URINE 0.2 E.U./dL (0.2-1.0)
[2018-12-20] MEDS ORDERED: SODIUM CHLORIDE 0.9% IV ONE (04:15)
[2018-12-20] MEDS ORDERED: PHENYTOIN SODIUM IV ONE (04:15)
[2018-12-20 04:46] LABS: *AMPHETAMINES SCREEN URINE NEGATIVE (NEGATIVE)
[2018-12-20 04:47] LABS: *BARBITURATES SCREEN URINE NEGATIVE (NEGATIVE); *BENZODIAZEPINES SCREEN URINE NEGATIVE (NEGATIVE); *COCAINE SCREEN URINE NEGATIVE (NEGATIVE); METHADONE URINE SCREEN NEGATIVE (NEGATIVE); OPIATES URINE SCREEN NEGATIVE (NEGATIVE); PHENCYCLIDINE URINE SCREEN NEGATIVE (NEGATIVE)
[2018-12-20 04:48] LABS: CANNABINOID URINE SCREEN NEGATIVE (NEGATIVE)
[2018-12-20] MEDS ORDERED: CEPHALEXIN 250MG CAPSULE PO ONE (05:45)
[2018-12-20 08:39] VITALS: BP 100/63
== END 2018-12-20 08:51 | disposition home or self-care (01) ==
LOC: ER 02:06
DX: R56.9 Unspecified convulsions (principal); R07.89 Other chest pain; N39.0 Urinary tract infection, site not specified; F41.9 Anxiety disorder, unspecified; F31.9 Bipolar disorder, unspecified; F20.9 Schizophrenia, unspecified; Z98.890 Other specified postprocedural states; Z91.041 Radiographic dye allergy status; Z91.040 Latex allergy status; Z79.82 Long term (current) use of aspirin; Z79.899 Other long term (current) drug therapy
CPT/HCPCS: 36415; 71045; 80053; 80185; 80305; 80320; 81003; 81025; 83880; 84484; 85025; 87086; 93005; 96365; 96375; 99284; J1165; J2270; J2405; J7050; G0480

== ENCOUNTER 2019-03-27 21:13 | Emergency (ER) | payer BC, MEDICAID ==
[~2019-03-27] VITALS: Ht 154.9 cm; Wt 77.0 kg
[~2019-03-27 21:13] MED LIST changes: -TRAZ-213 PO; +TRAZ-252 PO
[2019-03-27] MEDS ORDERED: KETOROLAC 30MG/ML VIAL IV STA (23:15)
[2019-03-28] MEDS ORDERED: HYDROCODONE/ACETAMINOPHEN 5/325MG TABLET PO ONE (00:45)
[2019-03-28 01:04] LABS: BASOPHILS % 0.6 % (0.0-2.0); EOSINOPHILS % 1.1 % (0.0-5.0); HEMOGLOBIN. 13.3 g/dL (12.0-16.0); LYMPHOCYTES % 31.1 % (20.0-50.0); MEAN CORPUSCULAR HEMOGLOBIN 27.6 pg (28.0-32.0); MEAN CORPUSCULAR VOLUME 85.1 fL (81.0-99.0); MEAN PLATELET VOLUME 9.4 fl (7.4-10.4); MONOCYTES % 6.8 % (2.0-8.0); NEUTROPHILS % 60.4 % (40.0-76.0); PLATELET 268 x1000/uL (130-400); RED BLOOD CELL COUNT 4.82 mill/uL (4.2-5.4); RED CELL DISTRIBUTION WIDTH 13.4 % (11.6-14.6)
[2019-03-28 01:09] LABS: CHLORIDE 110 mEq/L (98-107)
[2019-03-28 05:10] VITALS: BP 110/75
== END 2019-03-28 08:33 | disposition home or self-care (01) ==
LOC: ER 21:20
DX: M94.0 Chondrocostal junction syndrome [Tietze] (principal); F41.9 Anxiety disorder, unspecified; F31.9 Bipolar disorder, unspecified; F20.9 Schizophrenia, unspecified; I25.2 Old myocardial infarction; Z98.890 Other specified postprocedural states; Z91.041 Radiographic dye allergy status; Z91.040 Latex allergy status; Z79.899 Other long term (current) drug therapy
CPT/HCPCS: 36415; 71045; 80053; 81025; 83880; 84484; 85025; 85379; 93005; 99284

== ENCOUNTER 2019-09-10 21:52 | Emergency (ER) | payer OTHER, MEDICAID ==
[~2019-09-10] VITALS: Ht 152.4 cm; Wt 78.0 kg
[2019-09-10 22:57] LABS: CLARITY URINE CLOUDY (CLEAR); COLOR URINE YELLOW (YELLOW); KETONES URINE NEGATIVE (NEGATIVE); LEUKOCYTE ESTERASE URINE 3+ (NEGATIVE); NITRITE URINE NEGATIVE (NEGATIVE); OCCULT BLOOD URINE NEGATIVE (NEGATIVE); PH URINE 6.5 (4.5-8.0); PROTEIN URINE NEGATIVE (NEGATIVE); SPECIFIC GRAVITY URINE 1.024 (1.005-1.030)
[2019-09-10] MEDS ORDERED: CEPHALEXIN 250MG CAPSULE PO ONE (23:45)
[2019-09-11 00:05] VITALS: BP 112/60
== END 2019-09-11 00:07 | disposition home or self-care (01) ==
LOC: ER 21:52
DX: G40.909 Epilepsy, unspecified, not intractable, without status epilepticus (principal); N39.0 Urinary tract infection, site not specified; F32.9 Major depressive disorder, single episode, unspecified; F41.9 Anxiety disorder, unspecified; I25.2 Old myocardial infarction; Z91.041 Radiographic dye allergy status; Z91.040 Latex allergy status; Z98.890 Other specified postprocedural states; Z79.82 Long term (current) use of aspirin
CPT/HCPCS: 81003; 81025; 82962; 93005; 99284

== ENCOUNTER 2019-11-14 22:57 | Emergency (ER) | payer OTHER, MEDICAID ==
[~2019-11-14] VITALS: Ht 162.6 cm; Wt 70.0 kg
[2019-11-15 01:44] LABS: BASOPHILS % 1.2 % (0.0-2.0); EOSINOPHILS % 1.2 % (0.0-5.0); HEMATOCRIT. 36.2 % (36.0-48.0); HEMOGLOBIN. 12.2 g/dL (12.0-16.0); LYMPHOCYTES % 34.7 % (20.0-50.0); MEAN CORPUSCULAR HEMOGLOBIN 28.5 pg (28.0-32.0); MEAN CORPUSCULAR VOLUME 84.4 fL (81.0-99.0); MEAN PLATELET VOLUME 9.7 fl (7.4-10.4); MONOCYTES % 8.9 % (2.0-8.0); PLATELET 212 x1000/uL (130-400); RED BLOOD CELL COUNT 4.29 mill/uL (4.2-5.4); RED CELL DISTRIBUTION WIDTH 13.4 % (11.6-14.6)
[2019-11-15 01:48] LABS: CHLORIDE 110 mEq/L (98-107)
[2019-11-15 04:20] VITALS: BP 128/77
== END 2019-11-15 04:24 | disposition home or self-care (01) ==
LOC: ER 22:57
DX: M94.0 Chondrocostal junction syndrome [Tietze] (principal); E11.9 Type 2 diabetes mellitus without complications; J45.909 Unspecified asthma, uncomplicated; G40.909 Epilepsy, unspecified, not intractable, without status epilepticus; Z85.3 Personal history of malignant neoplasm of breast; Z91.041 Radiographic dye allergy status; Z91.040 Latex allergy status; Z98.890 Other specified postprocedural states; Z79.84 Long term (current) use of oral hypoglycemic drugs; Z79.82 Long term (current) use of aspirin
CPT/HCPCS: 36415; 71045; 80053; 81025; 84484; 85025; 85379; 93005; 99285

== ENCOUNTER 2022-06-09 02:27 | Emergency (ER) | payer BC, MEDICAID ==
[~2022-06-09] VITALS: Ht 147.3 cm; Wt 84.2 kg
[~2022-06-09 02:27] MED LIST changes: +CLON2TAB MT; +GABA-532 MT; +HYDR-4009 MT; -KEPP500 PO; -METF-414 PO; +METF-416 MT; +NITR0.4T49 SL; -PHEN100C4 PO; -TRAZ-252 PO; +TRAZ300T11 MT
[2022-06-09 02:54] VITALS: BP 117/75
== END 2022-06-09 08:39 | disposition left against medical advice (07) ==
LOC: ER 02:57
DX: Z53.21 Procedure and treatment not carried out due to patient leaving prior to being seen by health care provider (principal)

== ENCOUNTER 2022-11-01 23:12 | Emergency (ER) | payer MEDICARE, MEDICAID ==
[~2022-11-01] VITALS: Ht 152.4 cm; Wt 74.1 kg
[2022-11-01 23:57] LABS: CLARITY URINE CLOUDY (CLEAR); COLOR URINE YELLOW (YELLOW); KETONES URINE TRACE (NEGATIVE); LEUKOCYTE ESTERASE URINE 3+ (NEGATIVE); NITRITE URINE NEGATIVE (NEGATIVE); OCCULT BLOOD URINE NEGATIVE (NEGATIVE); PROTEIN URINE 1+ (NEGATIVE); SPECIFIC GRAVITY URINE 1.029 (1.005-1.030)
[2022-11-01 23:59] LABS: BASOPHILS % 0.9 % (0.0-2.0); EOSINOPHILS % 1.3 % (0.0-5.0); HEMATOCRIT. 40.5 % (36.0-48.0); HEMOGLOBIN. 13.2 g/dL (12.0-16.0); LYMPHOCYTES % 35.6 % (20.0-50.0); MEAN CORPUSCULAR HEMOGLOBIN 27.8 pg (28.0-32.0); MEAN CORPUSCULAR VOLUME 85.2 fL (81.0-99.0); MEAN PLATELET VOLUME 9.5 fl (7.4-10.4); MONOCYTES % 9.7 % (2.0-8.0); NEUTROPHILS % 52.5 % (40.0-76.0); PLATELET 252 x1000/uL (130-400); RED BLOOD CELL COUNT 4.76 mill/uL (4.2-5.4); RED CELL DISTRIBUTION WIDTH 13.4 % (11.6-14.6)
[2022-11-02 00:18] LABS: CHLORIDE 106 mEq/L (98-107)
[2022-11-02 01:36] VITALS: BP 136/80
== END 2022-11-02 01:37 | disposition home or self-care (01) ==
LOC: ER 23:12
DX: C90.00 Multiple myeloma not having achieved remission (principal); R07.9 Chest pain, unspecified; I25.2 Old myocardial infarction; E11.9 Type 2 diabetes mellitus without complications; Z91.040 Latex allergy status; Z88.8 Allergy status to other drugs, medicaments and biological substances; Z79.82 Long term (current) use of aspirin; Z79.84 Long term (current) use of oral hypoglycemic drugs; J45.909 Unspecified asthma, uncomplicated; Z68.31 Body mass index [BMI] 31.0-31.9, adult
CPT/HCPCS: 36415; 71045; 80053; 81003; 81025; 84484; 85025; 93005; 99285

== ENCOUNTER 2024-10-08 22:42 | Emergency (ER) | payer MEDICARE, MEDICAID ==
[~2024-10-08] VITALS: Ht 154.9 cm; Wt 76.4 kg
[~2024-10-08 22:42] MED LIST changes: +ARIP10TA86 PO; +ASCO500T20 PO; -CLON2TAB MT; +DOCU240C26 PO; +ERGO1250 PO; +GABA-1180 MT; -GABA-532 MT; +HUM100IN SQ; -HYDR-4009 MT; +LEVE500T19 PO; -NITR0.4T49 SL; +PHEN100C12 PO; -TRAZ300T11 MT
[2024-10-08 23:12] VITALS: TEMP 36.8; O2SAT 100
[2024-10-09] MEDS: OXYCODONE HCL 5MG TABLET PO ONE (05:51)
[2024-10-09 05:52] VITALS: BP 106/64; PULSE 83; RESP 16; O2SAT 100
== END 2024-10-09 05:52 | disposition home or self-care (01) ==
LOC: ER 22:42
DX: M25.561 Pain in right knee (principal); M25.562 Pain in left knee; E11.9 Type 2 diabetes mellitus without complications; F41.9 Anxiety disorder, unspecified; J45.998 Other asthma; F10.90 Alcohol use, unspecified, uncomplicated; J44.89 Other specified chronic obstructive pulmonary disease; Z79.4 Long term (current) use of insulin; Z79.82 Long term (current) use of aspirin; Z79.84 Long term (current) use of oral hypoglycemic drugs; Z79.899 Other long term (current) drug therapy; Z88.8 Allergy status to other drugs, medicaments and biological substances; Z91.041 Radiographic dye allergy status; Y90.9 Presence of alcohol in blood, level not specified
CPT/HCPCS: 99283